=== PATIENT | female | born 1995 | race Two or more races ===

== ENCOUNTER 2021-05-13 00:17 | Emergency (ER) | payer OTHER ==
[~2021-05-13] VITALS: Ht 157.5 cm; Wt 49.4 kg
[2021-05-13] MEDS ORDERED: PRENATAL TABLE1 EAC1 (00:32)
[2021-05-13] MEDS ORDERED: FOLIC ACID20 MG (00:32)
[2021-05-13] MEDS ORDERED: MONISTAT 315 GM VAG (01:54)
== END 2021-05-13 02:03 ==
LOC: ER 00:17
DX: B37.3 Candidiasis of vulva and vagina (principal)

== ENCOUNTER 2021-11-27 04:43 | Inpatient (IN) | payer OTHER ==
[~2021-11-27] VITALS: Ht 157.5 cm; Wt 59.0 kg
[~2021-11-27 04:43] MED LIST: FOLIC ACID20 MG; MONISTAT 315 GM VAG; PRENATAL TABLE1 EAC1
[2021-11-30] MEDS ORDERED: MACROBID 100 M100 MG PO (07:55)
== END 2021-11-30 14:13 | disposition home or self-care (01) | DRG 787 ==
LOC: LDR 04:43 → OB/GYN 04:43 → O/R 10:07 → OB/GYN 11:10
PROVIDERS: Obstetrics & Gynecology; ADMIT Specialist; ATTEND Specialist
PROC: 0TQB0ZZ Repair Bladder, Open Approach (ICD-10-PCS; 2021-11-27)
PROC: 4A1HXCZ Monitoring of Products of Conception, Cardiac Rate, External Approach (ICD-10-PCS; 2021-11-27)
PROC: 10D00Z1 Extraction of Products of Conception, Low, Open Approach (ICD-10-PCS; principal; 2021-11-27 07:00)
DX: O34.211 Maternal care for low transverse scar from previous cesarean delivery (principal); O71.5 Other obstetric injury to pelvic organs; N99.72 Accidental puncture and laceration of a genitourinary system organ or structure during other procedure; O71.89 Other specified obstetric trauma; Z3A.38 38 weeks gestation of pregnancy; Z37.0 Single live birth; Z20.822 Contact with and (suspected) exposure to COVID-19; Y92.234 Operating room of hospital as the place of occurrence of the external cause

== ENCOUNTER 2021-12-06 10:00 | Outpatient (CLI) | payer OTHER ==
[~2021-12-06 10:00] MED LIST changes: +MACROBID 100 M100 MG PO
== END 2021-12-06 10:20 | disposition home or self-care (01) ==
LOC: RAD 10:00
PROVIDERS: ATTEND Specialist
DX: S37.23XA Laceration of bladder, initial encounter (principal)